=== PATIENT | male | born 1955 | race Caucasian/White ===

== ENCOUNTER → 2018-04-15 | Outpatient (CLI) | payer BC ==
[2018-04-15 11:28] LABS: BLOOD UREA NITROGEN 17 MG/DL (7-18); CREATININE FOR GFR 0.89 MG/DL (0.70-1.30); GLOMERULAR FILTRATION RATE > 60.0 (>49)
== END ==
LOC: M LAB 10:40
PROVIDERS: ATTEND Internal Medicine Gastroenterology
DX: K31.5 Obstruction of duodenum (principal)

== ENCOUNTER → 2018-05-04 | Outpatient (CLI) | payer BC ==
[~2018-05-04] MED LIST: GLUCAGON FOR INJ 1 MG VIAL (J1610) As Ordered ONE; ISOVUE-370 76% 100ML VIAL (Q9967) As Ordered ONE; VoLumen 0.1% SUSPENSION 450ML BOTTLE As Ordered ONE
--- NOTE | 2018-05-05 11:02 | REP ---
Clinical: Duodenal obstruction. Technique: Axial contrast enhanced images of the abdomen and pelvis using enterography technique. Low density oral and 100 ml Isovue 370 intravenous contrast material administered without complication. Comparison: None. Findings: Evaluation of the enteric system including stomach, small, and large bowel demonstrates a moderately distended fluid-filled stomach which is likely transient. The duodenum to the ligament of Treitz appears normal. Jejunum and ileum are grossly normal in appearance. Evaluation of the terminal ileum and cecum are somewhat limited and the appearance most likely represents tumor effective appearing fecal material rather than actual cecal mass lesion. Normal appendix identified. Scattered sigmoid diverticula noted. No obvious obstruction or acute inflammatory process is identified. Liver, spleen, pancreas, gallbladder, bilateral adrenal glands and kidneys are normal. Incidental 1 cm simple left renal cyst noted. Pelvis demonstrates normal bladder and age appropriate prostate prostate gland with calcifications of the seminal vesicles suggesting systemic illness as such as diabetes. No ascites. No free air. No significant intraperitoneal or retroperitoneal adenopathy. Abdominal aorta and vasculature without aneurysm or dissection. Surrounding musculoskeletal structures demonstrate age-related degenerative changes without focal osseous abnormality. Lung bases are clear. Impression: 1. Likely prominent tumefactive fecal material at the cecum less likely representing true cecal mass. Consider follow-up colonoscopy for further investigation. 2. Few scattered sigmoid diverticula without acute diverticulitis. 3. Otherwise essentially normal appearance to the enteric system. 4. 1 cm simple left renal cyst. Electronically Signed by Edgardo Hancock MD 05/05/2018 10:52 A
== END ==
LOC: M RAD 13:24
PROVIDERS: ATTEND Internal Medicine Gastroenterology
DX: K31.5 Obstruction of duodenum (principal); R93.3 Abnormal findings on diagnostic imaging of other parts of digestive tract
CPT/HCPCS: 74177; J1610; Q9967

== ENCOUNTER 2018-05-22 10:40 | Day surgery (SDC) | payer BC ==
[~2018-05-22] VITALS: Ht 167.6 cm; Wt 79.4 kg
[~2018-05-22 10:40] MED LIST changes: +ASPI1TAB PO; +BYDU1INJ SC; +CINN500C9 PO; +FARX1TAB3 PO; -GLUCAGON FOR INJ 1 MG VIAL (J1610) As Ordered ONE; -ISOVUE-370 76% 100ML VIAL (Q9967) As Ordered ONE; +LIDOCAINE 2% INJ 100 MG/5 ML SDV (FOR ANES.) As Ordered ONE; +METF500T13 PO; +NS 1,000 ML IV ONE; +PANT40TA3 PO; +PRAV1TAB39 PO; +PROPOFOL 200 MG/20 ML VIAL As Ordered ONE; +RAMI1CAP26 PO; +RANI1TAB6 PO; -VoLumen 0.1% SUSPENSION 450ML BOTTLE As Ordered ONE
--- NOTE | 2018-05-22 12:32 | ROOR ---
Patient Name: Edgardo Gottlieb Procedure Date: 05/22/2018 12:09 PM Date of : 1955 Age: 63 Room: [facility] Gender: Male Note Status: Finalized Procedure: Upper GI endoscopy Indications: Abnormal UGI series (duodenal stenosis) Providers: Tomy DORADO MD Referring MD: ELLIOT WHITNEY MD Requesting Provider: Medicines: Monitored Anesthesia Care Complications: No immediate complications. Procedure: Pre-Anesthesia Assessment: - The heart rate, respiratory rate, oxygen saturations, blood pressure, adequacy of pulmonary ventilation, and response to care were monitored throughout the procedure. The Endoscope was introduced through the mouth, and advanced to the third part of duodenum. The upper GI endoscopy was accomplished without difficulty. The patient tolerated the procedure well. Findings: A non-obstructing Schatzki ring was found at the gastroesophageal junction. A TTS dilator was passed through the scope. Dilation with an 18-19-20 mm balloon dilator was performed to 20 mm. The dilation site was examined and showed complete resolution of luminal narrowing. The exam of the esophagus was otherwise normal. Small Hiatal Hernia. The entire examined stomach was normal. The examined duodenum was normal. There is no endoscopic evidence of mucosal abnormalities, stenosis or deformity in the duodenal bulb, in the first portion of the duodenum, in the second portion of the duodenum and in the entire examined duodenum. Impression: - Normal esophagus with mild Non-obstructing Schatzki ring. Dilated. - Normal stomach with small Hiatal Hernia. - Normal examined duodenum. (- There is no endoscopic evidence of mucosal abnormalities, stenosis or deformity in the entire examined duodenum.) - No specimens collected. Recommendation: - Observe patient's clinical course. Tomy Dorado MD Tomy DORADO MD 05/22/2018 12:32:36 PM This report has been signed electronically. Number of Addenda: 0 Note Initiated On: 05/22/2018 12:09 PM Estimated Blood Loss: Estimated blood loss: none. Estimated blood loss: none.
[2018-05-22] MEDS ORDERED: PROPOFOL 200 MG/20 ML VIAL As Ordered ONE (12:36)
--- NOTE | 2018-05-22 12:51 | ROOR ---
Patient Name: Edgardo Gottlieb Procedure Date: 05/22/2018 12:10 PM Date of : 1955 Age: 63 Room: [facility] Gender: Male Note Status: Finalized Procedure: Colonoscopy Indications: Screening for colorectal malignant neoplasm, Incidental - Abnormal CT of the GI tract Providers: Tomy DORADO MD Referring MD: ELLIOT WHITNEY MD Requesting Provider: Medicines: Monitored Anesthesia Care Complications: No immediate complications. Procedure: Pre-Anesthesia Assessment: - The heart rate, respiratory rate, oxygen saturations, blood pressure, adequacy of pulmonary ventilation, and response to care were monitored throughout the procedure. The Colonoscope was introduced through the anus and advanced to 10 cm into the ileum. The colonoscopy was performed without difficulty. The patient tolerated the procedure well. The quality of the bowel preparation was good. Findings: The perianal and digital rectal examinations were normal. Mild sigmoid diverticulosis and small internal hemorrhoids. The entire examined colon appeared normal on direct and retroflexion views. There is no endoscopic evidence of mass, polyps, stricture or ulcerations in the cecum, in the appendiceal orifice and in the ileocecal valve. There is no endoscopic evidence of inflammation, mass or ulcerations in the terminal ileum. Impression: - Mild sigmoid diverticulosis and small internal hemorrhoids. - The entire colon is otherwise normal on direct and retroflexion views. (- There is no mass/ulcer/polyp or any other abnormality of the cecum/termianl ileum) - No specimens collected. Recommendation: - Repeat colonoscopy in 10 years for screening purposes. Tomy Dorado MD Tomy DORADO MD 05/22/2018 12:50:15 PM This report has been signed electronically. Number of Addenda: 0 Note Initiated On: 05/22/2018 12:10 PM Estimated Blood Loss: Estimated blood loss: none. Estimated blood loss: none.
[2018-05-22 13:24] VITALS: BP 119/85
== END 2018-05-22 13:23 | disposition home or self-care (01) ==
LOC: M OPP 10:40
PROVIDERS: ATTEND Internal Medicine Gastroenterology
DX: Z12.11 Encounter for screening for malignant neoplasm of colon (principal); K44.9 Diaphragmatic hernia without obstruction or gangrene; K57.30 Diverticulosis of large intestine without perforation or abscess without bleeding; K22.2 Esophageal obstruction; R93.3 Abnormal findings on diagnostic imaging of other parts of digestive tract; E11.9 Type 2 diabetes mellitus without complications; Z79.82 Long term (current) use of aspirin; Z79.84 Long term (current) use of oral hypoglycemic drugs; Z79.899 Other long term (current) drug therapy; Z88.8 Allergy status to other drugs, medicaments and biological substances; Z80.0 Family history of malignant neoplasm of digestive organs

== ENCOUNTER → 2021-04-09 | Outpatient (REF) | payer BC ==
[~2021-04-09] MED LIST changes: -ASPI1TAB PO; +ASPI81TA26 PO; -LIDOCAINE 2% INJ 100 MG/5 ML SDV (FOR ANES.) As Ordered ONE; -NS 1,000 ML IV ONE; +PANT40TA29 PO; -PANT40TA3 PO; -PROPOFOL 200 MG/20 ML VIAL As Ordered ONE; +RANI-397 PO; -RANI1TAB6 PO
[2021-04-09 18:10] LABS: CREATININE,RANDOM URINE 55.8 MG/DL; TOTAL PROTEIN,RANDOM URINE 113.7 MG/DL (0.0-12.0)
== END ==
LOC: M LAB REF 16:50
PROVIDERS: ATTEND Internal Medicine Nephrology
DX: R80.9 Proteinuria, unspecified (principal)

== ENCOUNTER 2024-05-31 09:43 | Day surgery (SDC) | payer MEDICARE ==
[~2024-05-31] VITALS: Ht 167.6 cm; Wt 82.0 kg
[~2024-05-31 09:43] MED LIST changes: +CARV25TA PO; +CINN500C15 PO; +ELIQ5TAB PO; +ENTR1TAB4 PO; +FARX1TAB5 PO; +FINE10TA PO; +GLYCOPYRROLATE INJ 0.2 MG/ML 2 ML VIAL As Ordered ONE; +LIDOCAINE 2% 100MG/5ML SDV (FOR ANES.) As Ordered ONE; +OMEP1CAP73 PO; +PRAV20TA2 PO; +RAMI10CA64 PO; -RAMI1CAP26 PO; +ROSU20TA86 PO; +TRUL0.5I SC; +propofoL 200 MG/20 ML VIAL As Ordered ONE
[2024-05-31 11:33] VITALS: TEMP 97.6
[2024-05-31 11:50] VITALS: BP 132/71; O2SAT 98
== END 2024-05-31 11:57 | disposition home or self-care (01) ==
LOC: M OPP 09:43
PROVIDERS: ATTEND Internal Medicine Gastroenterology
DX: K57.30 Diverticulosis of large intestine without perforation or abscess without bleeding (principal); K64.8 Other hemorrhoids; D50.9 Iron deficiency anemia, unspecified; R19.5 Other fecal abnormalities; K44.9 Diaphragmatic hernia without obstruction or gangrene; I48.91 Unspecified atrial fibrillation; Z86.73 Personal history of transient ischemic attack (TIA), and cerebral infarction without residual deficits; Z88.8 Allergy status to other drugs, medicaments and biological substances; Z79.82 Long term (current) use of aspirin; Z79.01 Long term (current) use of anticoagulants; Z79.84 Long term (current) use of oral hypoglycemic drugs; Z79.85 Long-term (current) use of injectable non-insulin antidiabetic drugs; Z79.899 Other long term (current) drug therapy; Z95.1 Presence of aortocoronary bypass graft
CPT/HCPCS: 43235; 45378; J1596